=== PATIENT | male | born 1945 | race Caucasian/White ===

== ENCOUNTER 2024-07-24 17:28 | Emergency (ER) | payer MEDICARE, BC ==
[~2024-07-24] VITALS: Ht 167.6 cm; Wt 82.6 kg
[2024-07-24] MEDS ORDERED: MINERAL OIL 133 ML (PYXIS) 1 EA ENEMA RC ONE ×2 (18:11→20:29)
[2024-07-24] MEDS: MINERAL OIL 133 ML (PYXIS) 1 EA ENEMA RC ONE (18:28)
[2024-07-24] MEDS: MAGNESIUM CITRATE 296 ML BOTTLE PO ONE (18:28)
[2024-07-24] MEDS: MORPHINE SULFATE INJ 2 MG/ML DISP.SYRIN IM ONE (20:11)
[2024-07-24] MEDS ORDERED: MORPHINE SULFATE INJ 4 MG/ML DISP.SYRIN ONE (20:11)
[2024-07-24] MEDS: NA PHOS,M-B/NA PHOS,DI-BA 1 EA ENEMA RC ONE (20:39)
[2024-07-24] MEDS: PEG 3350/NA SULF,BICARB,CL/KCL 4,000 ML BOTTLE PO ONE (20:40)
[2024-07-24] MEDS ORDERED: PEG4000S4 PO (20:41)
[2024-07-24 21:03] VITALS: BP 132/77; TEMP 98; O2SAT 99
== END 2024-07-24 21:09 | disposition home or self-care (01) ==
LOC: ER 17:35
DX: K59.00 Constipation, unspecified (principal); I10 Essential (primary) hypertension; Z79.899 Other long term (current) drug therapy
CPT/HCPCS: 99284; 96372; J2270